=== PATIENT | female | born 1995 | race American Indian/Alaskan Native ===

== ENCOUNTER 2016-10-08 16:55 | Inpatient (IN) | payer MEDICAID ==
[2016-10-08] MEDS ORDERED: PITOCin/NS 30 UNIT/500ML 500 ML IV SCH (17:00)
[2016-10-08] MEDS ORDERED: MINERAL OIL PO PRN (17:05)
[2016-10-08] MEDS ORDERED: XYLOCAINE 2% INFILTRATI ONE (17:05)
[2016-10-08] MEDS ORDERED: ZOFRAN IV PRN ×2 (17:05→20:42)
[2016-10-08] MEDS ORDERED: ePHEDrine SULFATE IV PRN (17:05)
[2016-10-08] MEDS ORDERED: NARCAN 0.4 MG/1 ML IV PRN (17:05)
[2016-10-08] MEDS ORDERED: BRETHINE SUB-Q PRN (17:05)
[2016-10-08] MEDS ORDERED: STADOL IV PRN (17:05)
[2016-10-08] MEDS ORDERED: SUBLIMAZE IV PRN (17:05)
[2016-10-08] MEDS ORDERED: BRETHINE IVP PRN (17:05)
--- NOTE | 2016-10-08 17:47 | Procedure Note ---
OB Delivery Note - Delivery Date of Delivery: 10/08/16 Surgeon: ROBERTA BACA Estimated blood loss: 200cc - Vaginal Delivery presentation: vertex Delivery position: OA Intrapartum events: meconium, precipitous labor- <3hr, mult.variable deceleratio Delivery induction: none Delivery monitor: external FHT, external uterine Route of delivery: Delivery placenta: spontaneous Delivery cord: other (body cord ) Episiotomy: none Delivery laceration: 1st degree (hemostatic, well-approximating ) Anesthesia: none Delivery comments: Pt rapidly progressed to complete/complete/+1 and pushed to deliver a viable male over intact perineum via under no anesthesia. Head delivered in RODRIGUEZ position, quickly followed by shoulders and body. Body cord x 1 reduced. Cord clamped and cut and handed to NICU staff for meconium. Cord blood collected. Placenta delivered spontaneously. Vagina and perineum explored. First degree vaginal laceration noted to be hemostatic and well-approximating. EBL 200 mL. - Infant A at 1 minute: 8 at 5 minutes: 9 Gender: Male (2858g (6lb 5oz))
--- NOTE | 2016-10-08 17:47 | History and Physical Report ---
History of Present Illness Date of examination: 10/08/16 Date of admission: 10/08/16 16:55 Chief complaint: contractions, water broke History of present illness: Pt is a 20 year old -[place] female ENRRIQUE 10/16/16 at 38w6d who presents with contractions since 10 am this morning and rupture of membranes at 245 pm. She denies vaginal bleeding. She had limited care with one visit at [facility] on 09/06/16. She is GBS negative and has genital herpes with no lesions or prodrome. Past History Past Medical History: no pertinent history Past Surgical History: no surgical history Family/Genetic History: diabetes, cancer Social history: no significant social history - Obstetrical History Expected Date of Delivery: 10/16/16 Actual Gestation: 38 Week(s) 6 Day(s) : 2 Para: 1 Hx # Term Pregnancies: 1 Number of Pregnancies: 0 Spontaneous Abortions: 0 Induced : 0 Number of Living Children: 1 Medications and Allergies Active Meds: Active Medications Butorphanol Tartrate (Stadol) 2 mg IV Q2H PRN PRN Reason: Pain , Severe (7-10) Ephedrine Sulfate (Ephedrine Sulfate) 10 mg IV Q2M PRN PRN Reason: Hypotension Stop: 10/08/16 17:10 Fentanyl (Sublimaze) 100 mcg IV Q2H PRN PRN Reason: Labor Pain Lactated Ringer's (Lactated Ringers) 1,000 mls @ 125 mls/hr IV DIRECT BITA Oxytocin/Sodium Chloride (Pitocin/Ns 20 Unit/1000ml Drip) 1,000 mls @ 125 mls/ hr IV DIRECT BITA Oxytocin/Sodium Chloride (Pitocin/Ns 30 Unit/500ml) 500 mls @ 4 mls/hr IV TITR BITA PRN Reason: Protocol Lidocaine (Xylocaine 2%) 20 ml INFILTRATI ONCE ONE Stop: 10/08/16 17:06 Mineral Oil (Mineral Oil) 30 ml PO QHS PRN PRN Reason: Constipation Naloxone HCl (Narcan 0.4 Mg/1 Ml) 0.1 mg IV Q2MIN PRN PRN Reason: Res Rate </= 8 or 02 SAT < 92% Ondansetron HCl (Zofran) 4 mg IV Q8H PRN PRN Reason: Nausea And Vomiting Terbutaline Sulfate (Brethine) 0.25 mg SUB-Q ONCE PRN PRN Reason: Hyperstimulation/Hypertonicity Stop: 10/08/16 17:06 Terbutaline Sulfate (Brethine) 0.25 mg IVP ONCE PRN PRN Reason: Hyperstimulation/Hypertonicity Stop: 10/08/16 17:06 Review of Systems All systems: negative - Vital Signs Vital signs: Vital Signs Pulse BP Pulse Ox 108 H 147/69 78 L 10/08/16 17:13 10/08/16 17:13 10/08/16 17:13 Temp Pulse Resp BP Pulse Ox 80 147/69 99 10/08/16 17:13 10/08/16 17:13 10/08/16 17:13 - Physical Exam Breasts: Positive: deferred Cardiovascular: Regular rate Lungs: Positive: Clear to auscultation Abdomen: Positive: soft (gravid ) Genitourinary (Female): Positive: normal external genitalia Uterus: Positive: enlarged (gravid ) Extremities: Positive: normal - Obstetrical FHR: category 2 Uterine Contraction Monitor Mode: External Cervical Dilatation: 10 Cervical Effacement Percentage: 100 station: 0 Uterine Contraction Pattern: Regular Uterine Tone Measurement Phase: Resting Uterine Contraction Intensity: Strong/Firm Results All other labs normal. Assessment and Plan A: IUP at 38w6d Second stage labor SROM- thin meconium GBS negative Genital herpes- no lesion or prodrome P: Admit to labor and delivery. Routine intrapartum care. Respiratory consult for meconium.
[2016-10-08] MEDS ORDERED: PITOCin/NS 20 UNIT/1000ML DRIP 1,000 ML IV SCH ×2 (18:00→20:42)
[2016-10-08] MEDS ORDERED: LACTATED RINGERS 1,000 ML IV SCH (18:00)
[2016-10-08] MEDS ORDERED: MOTRIN PO PRN (20:11)
--- NOTE | 2016-10-08 20:13 | Event Note ---
Date: 10/08/16 Blood pressures elevated after deliver 150s/90s. [facility] labs drawn.
[2016-10-08 20:29] LABS: Hematocrit 32.2 % (30.3-42.9); Mean Corpuscular HGB Conc 31 % (30-34); Mean Corpuscular Volume 77 fl (79-97); Platelet Count 239 K/mm3 (140-440); Red Blood Count 4.16 M/mm3 (3.65-5.03); Red Cell Distribution Width 15.2 % (13.2-15.2); White Blood Count 8.7 K/mm3 (4.5-11.0)
[2016-10-08 20:34] LABS: Mean Corpuscular Hemoglobin 24 pg (28-32)
[2016-10-08] MEDS ORDERED: TYLENOL PO PRN (20:42)
[2016-10-08] MEDS ORDERED: PHENERGAN PO PRN (20:42)
[2016-10-08] MEDS ORDERED: NORCO 5/325 PO PRN (20:42)
[2016-10-08] MEDS ORDERED: DULCOLAX PR PRN (20:42)
[2016-10-08] MEDS ORDERED: TUCKS PAD TP PRN (20:42)
[2016-10-08] MEDS ORDERED: MILK OF MAGNESIA PO PRN (20:42)
[2016-10-08] MEDS ORDERED: PHENERGAN PR PRN (20:42)
[2016-10-08] MEDS ORDERED: DERMOPLAST TP PRN (20:42)
[2016-10-08] MEDS ORDERED: LANSINOH TP PRN ×2 (20:42)
[2016-10-08] MEDS ORDERED: SODIUM CHLORIDE FLUSH SYRINGE 10 ML IV PRN (20:42)
[2016-10-08] MEDS ORDERED: BENADRYL PO PRN (20:42)
[2016-10-08 21:19] LABS: Alanine Aminotransferase 5 units/L (7-56); Lactate Dehydrogenase 240 units/L (91-180); Uric Acid 4.7 mg/dL (3.5-7.6)
[2016-10-08] MEDS: FEOSOL PO SCH (21:54)
[2016-10-09] MEDS: MOTRIN PO SCH ×4 (05:49→20:23)
[2016-10-09 05:57] LABS: Hematocrit 28.1 % (30.3-42.9)
[2016-10-09] MEDS: PRENATAL VITAMIN PO SCH (12:13)
[2016-10-09] MEDS: FEOSOL PO SCH ×2 (12:13→23:48)
--- NOTE | 2016-10-09 12:22 | Progress Note ---
Assessment and Plan O: VSS AF PP H/H: 9.0/28.0 A: PP Day 1 Anmeia Limited Care P:Iron BID D/c am Subjective - Subjective Date of service: 10/09/16 Patient reports: appetite normal, voiding normally, pain well controlled, flatus , ambulating normally : doing well, bottle feeding Objective - Vital Signs Latest vital signs: Vital Signs Temp Pulse Pulse Resp BP BP Pulse Ox 10/09/16 08:35 98 F 65 18 134/88 10/09/16 01:00 98.1 F 87 20 133/62 10/08/16 20:45 98.4 F 74 20 138/68 10/08/16 20:35 65 18 149/76 98 10/08/16 20:33 65 149/76 10/08/16 20:25 18 10/08/16 20:18 80 156/99 10/08/16 20:03 72 154/92 10/08/16 19:49 83 149/95 10/08/16 19:48 88 157/97 10/08/16 19:35 90 18 144/86 10/08/16 19:33 90 144/86 10/08/16 19:20 87 18 151/65 10/08/16 19:18 87 151/65 10/08/16 19:05 97.7 F 91 H 18 137/79 10/08/16 19:04 91 H 137/79 10/08/16 19:03 94 H 98 10/08/16 19:01 99 H 150/94 10/08/16 18:58 106 H 98 10/08/16 18:53 104 H 99 10/08/16 18:48 93 H 137/84 98 10/08/16 18:43 91 H 98 10/08/16 18:38 91 H 98 10/08/16 18:33 91 H 133/75 98 10/08/16 18:28 92 H 97 10/08/16 18:23 107 H 96 10/08/16 18:18 102 H 137/81 94 10/08/16 18:13 90 95 10/08/16 18:08 95 H 97 10/08/16 18:03 103 H 135/83 97 10/08/16 17:13 80 147/69 99 Intake and Output 10/08/16 10/09/16 10/09/16 22:59 06:59 14:59 Intake Total 240 240 Output Total 500 Balance -260 240 Intake: Oral 240 240 Output: Urine 500 Void 500 Other: Total, Intake Amount 240 240 Total, Output Amount 500 # Voids Void 1 Weight 77.111 kg Estimated Blood Loss 200 - Exam Breasts: Present: deferred Abdomen: Present: normal appearance, soft. Absent: distention, tenderness Vulva: both: normal Uterus: Present: fundal height below umbilicus. Absent: normal, firm, bogginess , tenderness Extremities: Present: normal - Labs Labs: Abnormal lab results 10/08/16 10/08/16 10/09/16 Range/Units 17:00 17:00 05:46 Hgb 10.0 L 9.0 L (10.1-14.3) gm/dl Hct 28.1 L (30.3-42.9) % MCV 77 L (79-97) fl MCH 24 L (28-32) pg Creatinine 0.5 L (0.7-1.2) mg/dL ALT 5 L (7-56) units/L Lactate Dehydrogenase 240 H (91-180) units/L
--- NOTE | 2016-10-09 12:53 | Discharge Summary ---
Providers - Providers Date of Admission: 10/08/16 16:55 Date of discharge: 10/10/16 Attending physician: ROBERTA BACA 10/08/16 20:42 Consult to Tipple Worker [CONS] Routine Reason For Exam: assistance with , SNS Primary care physician: ROBERTA BACA Hospitalization Reason for admission: active labor, IUP at term Delivery: Episiotomy: none Laceration: none Other procedures: none complications: none Discharge diagnosis: IUP at term delivered [place] baby: male Condition at discharge: Good Disposition: DISCHARGED TO HOME OR SELFCARE Plan - Discharge Medications Prescriptions: Ferrous Sulfate [Feosol 325 MG tab] 325 mg PO BID #60 tablet Ibuprofen [Motrin 600 MG tab] 600 mg PO Q6HR PRN #30 tablet PRN Reason: Pain - Provider Discharge Summary Activity: routine, no sex for 6 weeks, no heavy lifting 4 weeks, no strenuous exercise Diet: routine Instructions: routine Additional instructions: [] Smoking cessation referral if applicable(refer to patient education folder for contact #) [] Refer to [facility]'s [facility] Booklet Call your doctor immediately for: * Fever > 100.5 * Heavy vaginal bleeding ( >1 pad per hour) * Severe persistent headache * Shortness of breath * Reddened, hot, painful area to leg or breast * Drainage or odor from incision. * Keep incision clean and dry at all times and follow doctor's instructions regarding bathing/showering - Follow up plan Follow up: ROBERTA BACA MD [Primary Care Provider] - (RTO 4 weeks Call to schedule circumcision )
[2016-10-09] MEDS ORDERED: M-M-R II VACCINE SUB-Q ONE (17:49)
[2016-10-10] MEDS: MOTRIN PO SCH (02:35)
[2016-10-10] MEDS ORDERED: BOOSTRIX IM ONE (06:00)
--- NOTE | 2016-10-10 08:03 | Progress Note ---
Assessment and Plan PPD#2 s/p doing well Breast and bottle feeding tolerating diet bleeding decreased contraception reviewed desires depo Afebrile f/u in clinic in 1 week for BP check ( limited care) iron tabs for anemia Subjective - Subjective Date of service: 10/10/16 Principal diagnosis: PPD#2 Patient reports: appetite normal, voiding normally, pain well controlled, ambulating normally : doing well, nursing well, bottle feeding Objective - Vital Signs Latest vital signs: Vital Signs Temp Pulse Resp BP 10/09/16 23:50 97.7 F 57 L 18 135/87 10/09/16 16:45 97.5 F L 59 L 18 140/84 10/09/16 08:35 98 F 65 18 134/88 Intake and Output 10/09/16 10/10/16 10/10/16 22:59 06:59 14:59 Intake Total 840 480 Balance 840 480 Intake: Oral 840 480 Other: Total, Intake Amount 240 240 # Voids Void 1 1 - Exam Breasts: Present: normal Cardiovascular: Present: Regular rate, Normal S1, Normal S2, No murmurs Lungs: Present: Clear to auscultation, Normal air movement Abdomen: Present: normal appearance, soft, normal bowel sounds Vulva: both: normal Uterus: Present: normal, firm, fundal height below umbilicus (3 cm below). Absent: bogginess, tenderness Extremities: Present: normal. Absent: tenderness Incision: Present: normal, dry, intact
[2016-10-10 08:45] VITALS: BP 121/62
[2016-10-10] MEDS ORDERED: DEPO-PROVERA (CONTRACEPTION) IM NR (09:00)
[2016-10-10] MEDS: FEOSOL PO SCH (10:02)
[2016-10-10] MEDS: PRENATAL VITAMIN PO SCH (10:02)
== END 2016-10-10 11:00 | disposition home or self-care (01) | DRG 775 ==
LOC: LD 16:55 → OB 20:46
PROVIDERS: ADMIT Obstetrics & Gynecology; ATTEND Obstetrics & Gynecology
PROC: 0HQ9XZZ Repair Perineum Skin, External Approach (ICD-10-PCS; principal; 2016-10-08)
DX: O77.0 Labor and delivery complicated by meconium in amniotic fluid (principal); O62.3 Precipitate labor; O69.89X0 Labor and delivery complicated by other cord complications, not applicable or unspecified; O70.0 First degree perineal laceration during delivery; Z37.0 Single live birth; Z3A.38 38 weeks gestation of pregnancy; Z22.4 Carrier of infections with a predominantly sexual mode of transmission
CPT/HCPCS: 36415; 82565; 83615; 84450; 84460; 84550; 85014; 85018; 85027; 86850; 86900; 86901; 88307; 90471; 90715; J1050; J2590

== ENCOUNTER 2019-02-10 03:04 | Emergency (ER) | payer MEDICAID, OTHER ==
[2019-02-10 03:18] VITALS: BP 115/69
[2019-02-10 03:36] LABS: Basophils % (Auto) 0.6 % (0.0-1.8); Eosinophils # (Auto) 0.4 K/mm3 (0.0-0.4); Eosinophils % (Auto) 8.2 % (0.0-4.3); Hematocrit 31.7 % (30.3-42.9); Hemoglobin 10.6 gm/dl (10.1-14.3); Lymphocytes # (Auto) 0.9 K/mm3 (1.2-5.4); Mean Corpuscular HGB Conc 34 % (30-34); Mean Corpuscular Volume 82 fl (79-97); Monocytes # (Auto) 0.4 K/mm3 (0.0-0.8); Monocytes % (Auto) 6.8 % (0.0-7.3); Platelet Count 244 K/mm3 (140-440); Red Blood Count 3.86 M/mm3 (3.65-5.03); Red Cell Distribution Width 14.7 % (13.2-15.2)
[2019-02-10 03:57] LABS: Alanine Aminotransferase 15 units/L (7-56); Albumin 3.3 g/dL (3.9-5); BUN/Creatinine Ratio 23; Blood Urea Nitrogen 9 mg/dL (7-17); Calcium 8.6 mg/dL (8.4-10.2); Hemolysis Index 2
[2019-02-10 05:27] LABS: Bacteria,Urine 1+ /HPF (Negative); Bilirubin,Urine NEG (Negative); Blood,Urine NEG (Negative); Color,Urine Yellow (Yellow); Mucus,Urine FEW /HPF; Protein,Urine <15 mg/dL mg/dL (Negative)
--- NOTE | 2019-02-10 06:18 | Ultrasound Report ---
PROCEDURE: US OB >= 14 WEEKS FETUS TECHNIQUE: Routine transabdominal imaging was obtained of the pelvis. HISTORY: abd pn COMPARISONS: None FINDINGS: There is a single viable intrauterine with an estimated gestational age of 16 weeks 3 days based on sonographic criteria. There is normal motion and cardiac activity (139 BPM). The place nta is anterior in position and is grade 0. The amniotic fluid volume is normal. The fetus is in ceph alic presentation. A complete survey of organs was not obtained. IMPRESSION: Single viable IUP, 16 weeks 3 days. The heart rate is 139 BPM.. This document is electronically signed by Reynaldo Hitchcock MD., Feb 10 2019 06:16:34 AM ET
== END 2019-02-10 08:48 | disposition left against medical advice (07) ==
LOC: ED 03:04
DX: O26.891 Other specified pregnancy related conditions, first trimester (principal); Z53.21 Procedure and treatment not carried out due to patient leaving prior to being seen by health care provider
CPT/HCPCS: 36415; 76805; 80053; 81001; 84702; 85025